=== PATIENT | female | born 1970 | race Caucasian/White ===

== ENCOUNTER 2016-05-15 14:07 | Outpatient (RCR) | payer OTHER | END 2016-05-27 | disposition home or self-care (01) | PROVIDERS: ATTEND Nurse Practitioner Family | DX: M53.3 Sacrococcygeal disorders, not elsewhere classified (principal) ==

== ENCOUNTER 2016-07-03 14:00 | Outpatient (RCR) | payer OTHER | END 2016-07-24 15:40 | disposition home or self-care (01) | PROVIDERS: ATTEND Nurse Practitioner Family | DX: M53.3 Sacrococcygeal disorders, not elsewhere classified (principal) ==

== ENCOUNTER → 2016-07-10 | Outpatient (CLI) | payer OTHER ==
--- NOTE | 2016-07-10 17:12 | Diagnostic Imaging Report ---
PROCEDURE: MRI lumbar spine. TECHNIQUE: Multiplanar, multisequence MRI of the lumbar spine was performed without contrast. INDICATION: Low back pain. FINDINGS: There is straightening of the lumbar spine. The vertebral body heights are preserved. There is disc desiccation in the lower lumbar spine. No significant disc height loss, however, is seen. There is no significant marrow signal abnormality. The cauda equina and conus medullaris appear grossly unremarkable. T12/L1: There is no disc herniation, no spinal canal or foramina stenosis. The conus terminates at the L1 level. L1/2: No disc herniation. There is mild facet and ligamentous hypertrophy. No central canal or lateral recess stenosis. L2/3: There is no disc herniation. There is mild facet hypertrophy. No central canal or lateral recess stenosis. L3/4: There is a minimal disc bulge and mild to moderate facet arthropathy, more on the right side. No central canal or lateral recess stenosis, however. No foramina stenosis. L4/5: There is a diffuse disc bulge and bilateral moderate facet arthropathy. There is a mild central calcinosis reducing the AP dimension of the canal to 8.9 mm. The lateral recess demonstrates minimal narrowing, bilaterally. The foramina demonstrates no significant stenosis. L5/S1: There is a large right paracentral disc extrusion with caudal migration. The disc herniation measures 1.5 cm craniocaudally, 1.4 cm transversely and 1.1 cm in AP dimension. There is mild ligamentous thickening. The disc results in severe right lateral recess stenosis compressing the descending right nerve roots, particularly the right L5 nerve root. There is mild central canal stenosis reducing the AP dimension of the canal to 8.7 mm and there is mild left lateral recess stenosis. The foramina demonstrates mild stenosis, bilaterally. 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 Report was faxed to the office of Dr. Jl Lee at 5:07 p.m., by anival. Dictated by: Dictated on workstation # [id number]
== END ==
LOC: RAD 15:57
PROVIDERS: ATTEND Pain Medicine Pain Medicine
DX: M54.5 Low back pain (principal)
CPT/HCPCS: 72148

== ENCOUNTER → 2019-03-01 | Outpatient (CLI) | payer BC ==
--- NOTE | 2019-03-01 12:06 | Diagnostic Imaging Report ---
INDICATION: Routine screening. COMPARISON: No prior mammograms are available for comparison. This is a baseline study. TECHNIQUE: 2D and 3D bilateral screening mammography was performed with CAD. FINDINGS: Scattered fibroglandular densities are identified bilaterally. Benign-appearing intraparenchymal lymph nodes in the upper-outer right breast are noted. The left breast does contain a density, best seen on the CC view, in the retroareolar region. This may be the nipple line on the left MLO view. Additional views are recommended. No suspicious calcifications are seen. The axillae are unremarkable. IMPRESSION: Left breast density. Additional views are recommended for further evaluation. ACR BI-RADS Category 0: Incomplete. (Needs additional imaging evaluation). Result letter will be mailed to the patient. Note: At least 10% of breast cancer is not imaged by mammography. Dictated by: Dictated on workstation # [id number]
== END ==
LOC: RAD 09:42
PROVIDERS: ATTEND Nurse Practitioner Family
DX: Z12.31 Encounter for screening mammogram for malignant neoplasm of breast (principal); R92.8 Other abnormal and inconclusive findings on diagnostic imaging of breast
CPT/HCPCS: 77067

== ENCOUNTER → 2019-03-25 | Outpatient (CLI) | payer BC ==
--- NOTE | 2019-03-25 08:53 | Diagnostic Imaging Report ---
INDICATION: Left breast density. Patient presents for additional views. Correlation is made with screening study from 03/01/2019. Unilateral left 2-D and 3-D diagnostic mammography was performed with CAD. This included spot compression CC and MLO views and 90 degree lateral view. There is a persistent density in the retroareolar slightly upper and outer left breast. This is indeterminate. No suspicious calcifications are seen. IMPRESSION: BI-RADS 0 Persistent density in the retroareolar left breast, as described. Further evaluation with ultrasound is recommended and will be performed today. ACR BI-RADS Category 0: Incomplete. (Needs additional imaging evaluation). Result letter will be mailed to the patient. Note: At least 10% of breast cancer is not imaged by mammography. Dictated by: Dictated on workstation # [id number]
--- NOTE | 2019-03-25 09:12 | Diagnostic Imaging Report ---
INDICATION: Left breast density. Correlation is made with the diagnostic mammogram earlier the same day and screening mammogram from 03/01/2019. Sonographic interrogation of the retroareolar left breast approximately 12:30 location does show hypoechoic nodule measuring approximately 8 mm x 4 mm x 6 mm, nonspecific. No internal vascularity is seen. No posterior acoustic shadowing is identified. No other abnormalities are seen. IMPRESSION: Subcentimeter hypoechoic nodule 12:30 location left breast, likely accounting for the mammographic density. This could potentially merely represent fibroglandular tissue. Even so, followup left mammogram and left breast ultrasound in 6 months is recommended to show continued stability. BI-RADS Category 3 ACR BI-RADS Category 3: Probably benign findings. Result letter will be mailed to the patient. Note: At least 10% of breast cancer is not imaged by mammography. Dictated by: Dictated on workstation # [id number]
== END ==
LOC: RAD 07:53
PROVIDERS: ATTEND Nurse Practitioner Family
DX: R92.2 Inconclusive mammogram (principal)
CPT/HCPCS: 76642